=== PATIENT | male | born 1950 | race Caucasian/White ===

== ENCOUNTER → 2017-02-22 | Outpatient (CLI) | payer BC, MEDICARE, OTHER ==
[2017-02-22 10:39] LABS: HEMATOCRIT 42.5 % (37.9-51.0); HEMOGLOBIN 14.3 g/dL (13.5-17.0); HGB HCT DIFFERENCE 0.4; MEAN CORPUSCULAR HEMOGLOBIN 30.6 pg (27.0-33.4); MEAN CORPUSCULAR HGB CONC 33.5 g/dL (32.0-36.0); MEAN CORPUSCULAR VOLUME 91 fl (80-97); RED BLOOD COUNT 4.65 10^6/uL (4.35-5.55); RED CELL DISTRIBUTION WIDTH 13.2 % (11.5-14.0); WHITE BLOOD COUNT 11.3 10^3/uL (4.0-10.5)
[2017-02-22 11:01] LABS: ALANINE AMINOTRANSFERASE 43 U/L (21-72); ALBUMIN 4.8 g/dL (3.5-5.0); ALKALINE PHOSPHATASE 70 U/L (38-126); ANION GAP 12 (5-19); ASPARTATE AMINO TRANSFERASE 25 U/L (17-59); BILIRUBIN,DIRECT 0.4 mg/dL (0.0-0.4); BILIRUBIN,TOTAL 0.7 mg/dL (0.2-1.3); BLOOD UREA NITROGEN 17 mg/dL (7-20); CALCIUM 9.7 mg/dL (8.4-10.2); CARBON DIOXIDE 26 mmol/L (22-30); CHLORIDE 103 mmol/L (98-107); CREATININE RESULT 0.86 mg/dL (0.52-1.25); GLUCOSE 105 mg/dL (75-110); POTASSIUM 4.9 mmol/L (3.6-5.0); SODIUM 140.8 mmol/L (137-145); TOTAL PROTEIN 7.9 g/dL (6.3-8.2)
--- NOTE | 2017-02-22 13:21 | RADIOLOGY REPORT (SQ) ---
EXAM DESCRIPTION: CT ABD/PELVIS WITH IV ORAL COMPLETED DATE/TIME: 02/22/2017 1:02 pm REASON FOR STUDY: ABDOMINAL PAIN COMPARISON: None. TECHNIQUE: CT scan of the abdomen and pelvis performed using helical scanning technique with dynamic intravenous contrast injection. No oral contrast. Images reviewed with lung, soft tissue, and bone windows. Reconstructed coronal and sagittal MPR images reviewed. Delayed images for evaluation of the urinary system also acquired. All images stored on PACS. All CT scanners at this facility use dose modulation, iterative reconstruction, and/or weight based d osing when appropriate to reduce radiation dose to as low as reasonably achievable (ALARA). [facility]: Dose Right [facility]: CareDose [facility]: Dose Right [facility]: Teradose 4D [facility]: [employer] CONTRAST TYPE AND DOSE: contrast/concentration: Isovue 370.00 mg/ml; Total Contrast Delivered: 98.0 ml; Total Saline Delivered: 72.0 ml RENAL FUNCTION: Creatinine 0.86 RADIATION DOSE: Up-to-date CT equipment and radiation dose reduction techniques were employed. CTDIv ol: 13.6 - 15.7 mGy. DLP: 1596 mGy-cm.. LIMITATIONS: None. FINDINGS: Along the distal sigmoid colon, which loops into the right lower quadrant, there is a 7 cm long segment of wall thickening, luminal narrowing, and adjacent inflammation from acute diverticuli tis. No free air. No free fluid. No abscess. Report discussed with Dayday Nowak PA-C at [facility], 1300 hours 02/22/2017. There is oral contrast throughout the remainder of the gastrointestinal tract without evidence of bow el obstruction or appendicitis. LOWER CHEST: No significant findings. No nodules or infiltrates. LIVER: Normal size. No masses. No dilated ducts. SPLEEN: Normal size. No focal lesions. PANCREAS: No masses. No significant calcifications. No adjacent inflammation or peripancreatic fluid collections. Pancreatic duct not dilated. GALLBLADDER: No identified stones by CT criteria. No inflammatory changes to suggest cholecystitis. ADRENAL GLANDS: No significant masses or asymmetry. RIGHT KIDNEY AND URETER: No solid masses. No significant calcifications. No hydronephrosis or hyd roureter. LEFT KIDNEY AND URETER: No solid masses. No significant calcifications. No hydronephrosis or hydr oureter. AORTA AND VESSELS: No aneurysm. No dissection. Renal arteries, SMA, celiac without stenosis. RETROPERITONEUM: No retroperitoneal adenopathy, hemorrhage or masses. BOWEL AND PERITONEAL CAVITY: As above APPENDIX: Normal. PELVIS: No mass. No free fluid. Normal bladder. ABDOMINAL WALL: No masses. No hernias. BONES: No significant or acute findings. OTHER: No other significant finding. IMPRESSION: Distal sigmoid colon wall thickening, luminal narrowing and adjacent inflammation from d iverticulitis. No abscess. Report called to the patient's primary caregiver as above. TECHNICAL DOCUMENTATION: JOB ID: [id number] Quality ID # [id number]: Final reports with documentation of one or more dose reduction techniques (e.g., Au tomated exposure control, adjustment of the mA and/or kV according to patient size, use of iterative reconstruction technique) 2010 [employer]- All Rights Reserved
== END ==
LOC: RAD 10:11
PROVIDERS: ATTEND Physician Assistant
DX: R10.9 Unspecified abdominal pain (principal)
CPT/HCPCS: 36415; 74177; 80053; 85027

== ENCOUNTER 2019-07-15 08:06 | Emergency (ER) | payer MEDICARE, BC, OTHER ==
--- NOTE | 2019-07-15 08:55 | RADIOLOGY REPORT (SQ) ---
EXAM DESCRIPTION: CT HEAD WITHOUT COMPLETED DATE/TIME: 07/15/2019 8:41 am REASON FOR STUDY: ?LOC, head injury COMPARISON: None. TECHNIQUE: Axial images acquired through the brain without intravenous contrast. Images reviewed wi th bone, brain and subdural windows. Images stored on PACS. All CT scanners at this facility use dose modulation, iterative reconstruction, and/or weight based d osing when appropriate to reduce radiation dose to as low as reasonably achievable (ALARA). [facility]: Dose Right [facility]: [employer] [facility]: Dose Right [facility]: Teradose 4D [facility]: [employer] RADIATION DOSE: CT Rad equipment meets quality standard of care and radiation dose reduction techniq ues were employed. CTDIvol: 53.2 mGy. DLP: 1044 mGy-cm. mGy. LIMITATIONS: None. FINDINGS: VENTRICLES: Minimal dilatation, likely atrophy. CEREBRUM: No mass effect. No hemorrhage. No midline shift. Normal [place]/white matter differentiatio n. No evidence for acute territorial infarction. CEREBELLUM: No mass effect. No hemorrhage. No alteration of density. No evidence for acute infarct ion. EXTRAAXIAL SPACES: No fluid collections. ORBITS AND GLOBE: Symmetrical contour of the globes. CALVARIUM: No depressed skull fracture. PARANASAL SINUSES: No air-fluid level. SOFT TISSUES: No hematoma. IMPRESSION: No acute intracranial abnormality. TECHNICAL DOCUMENTATION: JOB ID: [id number]-[facility] [id number]: Final reports with documentation of one or more dose reduction techniques (e.g., Automate d exposure control, adjustment of the mA and/or kV according to patient size, use of iterative recons truction technique) 2010 [employer]- All Rights Reserved Reading location - IP/workstation name: [email or web address]
[2019-07-15 10:04] LABS: ABSOLUTE BASOPHILS # (AUTO) 0.1 10^3/uL (0.0-0.2); ABSOLUTE EOSINOPHILS # (AUTO) 0.2 10^3/uL (0.0-0.6); ABSOLUTE LYMPHOCYTES (AUTO) 1.5 10^3/uL (0.5-4.7); ABSOLUTE MONOCYTES (AUTO) 0.9 10^3/uL (0.1-1.4); ABSOLUTE NEUT (AUTO) 8.5 10^3/uL (1.7-8.2); BASOPHILS % (AUTO) 1.1 % (0-2); EOSINOPHILS % (AUTO) 1.6 % (0-6); HEMATOCRIT 37.1 % (37.9-51.0); HEMOGLOBIN 12.7 g/dL (13.5-17.0); LYMPHOCYTES % (AUTO) 13.6 % (13-45); MEAN CORPUSCULAR HEMOGLOBIN 31.2 pg (27.0-33.4); MEAN CORPUSCULAR HGB CONC 34.1 g/dL (32.0-36.0); MEAN CORPUSCULAR VOLUME 91 fl (80-97); MONOCYTES % (AUTO) 8.4 % (3-13); PLATELET COUNT 324 10^3/uL (150-450); RED BLOOD COUNT 4.07 10^6/uL (4.35-5.55); RED CELL DISTRIBUTION WIDTH 13.4 % (11.5-14.0); SEGMENTED NEUTROPHILS % (AUTO) 75.3 % (42-78); TOTAL CELLS COUNTED % (AUTO) 100 %; WHITE BLOOD COUNT 11.3 10^3/uL (4.0-10.5)
[2019-07-15 10:27] LABS: ALBUMIN 4.3 g/dL (3.5-5.0); ALKALINE PHOSPHATASE 63 U/L (38-126); ANION GAP 8 (5-19); ASPARTATE AMINO TRANSFERASE 27 U/L (17-59); BILIRUBIN,DIRECT 0.2 mg/dL (0.0-0.4); BILIRUBIN,TOTAL 0.7 mg/dL (0.2-1.3); BLOOD UREA NITROGEN 31 mg/dL (7-20); CALCIUM 9.6 mg/dL (8.4-10.2); CARBON DIOXIDE 27 mmol/L (22-30); CHLORIDE 103 mmol/L (98-107); CREATINE KINASE 147 U/L (55-170); GLUCOSE 108 mg/dL (75-110); POTASSIUM 5.4 mmol/L (3.6-5.0); TOTAL PROTEIN 7.1 g/dL (6.3-8.2)
[2019-07-15 10:38] LABS: CREATINE KINASE MB 1.14 ng/mL (<4.55)
[2019-07-15 10:41] LABS: TROPONIN I < 0.012 ng/mL
[2019-07-15] MEDS ORDERED: TETANUS/DIPHTHERIA TOX-ADULT 0.5 ML SYR (>=7YO) IM ONE (10:42)
--- NOTE | 2019-07-15 10:43 | ER Document Report ---
ED Head/Face/Scalp Injury <LISA,SRAVANICARLENESHAMA - Last Filed: 07/15/19 12:34> - General TRAVEL OUTSIDE OF THE [place] IN LAST 30 DAYS: No - HPI Patient complains to provider of: Laceration - r forehead Injury to: Forehead Location of problem: Head Occurred: Just prior to arrival Where: Home Timing: Still present <YRIS BERNARD - Last Filed: 07/15/19 12:43> - General Chief Complaint: Facial Injury Stated Complaint: FALL,EYE INJURY Primary Care Provider: LIZANDRO BOONE MD [Primary Care Provider] - Follow up as needed - HPI Notes: Patient is a-year-old male who was standing in the kitchen apparently was taking a step forward slipped and fell forward hitting the head his head on the ground and he did not have any loss of consciousness denies any chest pain shortness of breath dizziness lightheadedness abdominal pain vomiting diarrhea or other complaints. Loss of consciousness. This shot is not up-to-date. (YRIS BERNARD) - Related Data Allergies/Adverse Reactions: Penicillins Allergy (Verified 07/15/19 09:11) Past Medical History - Social History Smoking Status: Never Smoker Frequency of alcohol use: None Drug Abuse: None Family History: None Patient has suicidal ideation: No Patient has homicidal ideation: No - Past Medical History Cardiac Medical History: Reports: Hx Hypercholesterolemia, Hx Hypertension - Immunizations Immunizations up to date: No Hx Diphtheria, Pertussis, Tetanus Vaccination: No <YRIS BERNARD - Last Filed: 07/15/19 12:43> Review of Systems - Review of Systems Constitutional: denies: No symptoms reported, See HPI, Chills, Diaphoresis, Fever, Malaise, Weakness, Other, Weight gain, Weight loss, Recent illness EENT: denies: No symptoms reported, See HPI, Eye pain, Eye discharge, Blurred vision, Tearing, Double vision, Ear pain, Ear discharge, Nose pain, Nose conges tion, Nose discharge, Sinus pressure, Sinus discharge, Throat pain, Difficulty swallowing, Throat swelling, Mouth pain, Mouth swelling, Dental problem, Vertigo, Other Cardiovascular: denies: No symptoms reported, See HPI, Chest pain, Palpitations, Heart racing, Orthopnea, Dyspnea, Syncope, Dizziness, Lightheaded, Edema, Other, Paroxysmal Nocturnal Dysp Respiratory: denies: No symptoms reported, See HPI, Cough, Hurts to breathe, Hemoptysis, Short of breath, Sputum, Stridor, Wheezing, Other Gastrointestinal: denies: No symptoms reported, See HPI, Abdomen distended, Abdominal pain, Diarrhea, Nausea, Vomiting, Constipation, Blood streaked bowels, Poor appetite, Poor fluid intake, Blood in vomit, Black stools, Rectal bleeding, Last bowel movement, Fecal incontinence, Other Genitourinary: denies: No symptoms reported, See HPI, Burning, Dysuria, Discharge, Frequency, Flank pain, Hematuria, Incontinence, Pain, Urgency, Retention, Other Musculoskeletal: denies: No symptoms reported, See HPI, Back pain, Gout, Joint pain, Joint swelling, Muscle pain, Muscle stiffness, Neck pain, Deformity, Leg swelling, Ankle swelling, Other Neurological/Psychological: Headaches -: Yes All other systems reviewed and negative <YRIS BERNARD - Last Filed: 07/15/19 12:43> Physical Exam <YRIS BERNARD - Last Filed: 07/15/19 12:43> - Vital signs Vitals: Pulse BP 64 125/103 H 07/15/19 11:40 07/15/19 11:40 Notes: PHYSICAL EXAMINATION: GENERAL: Well-appearing, well-nourished and in no acute distress. HEAD:ecchymosis to r eyebrow. Approximately 2 cm laceration above the right e yebrow. On the forehead soft tissue swelling around the eye however there is no bony step-offs in the zygomatic arch or the orbital rim EYES: Pupils equal round and reactive to light, extraocular movements intact, sclera anicteric, conjunctiva are normal. ENT: nares patent, oropharynx clear without exudates. Moist mucous membranes. NECK: Normal range of motion, supple without lymphadenopathy LUNGS: Breath sounds clear to auscultation bilaterally and equal. No wheezes rales or rhonchi. HEART: Regular rate and rhythm without murmurs ABDOMEN: Soft, nontender, normoactive bowel sounds. No guarding, no rebound. No masses appreciated. EXTREMITIES: Normal range of motion, no pitting or edema. No cyanosis. Bilateral fingers index and middle on the hands are painful to palpation but full range of motion. NEUROLOGICAL: No focal neurological deficits. Moves all extremities sp ontaneously and on command. PSYCH: Normal mood, normal affect. SKIN: Warm, Dry, normal turgor, no rashes or lesions noted. (YRIS BERNARD) Course - Laboratory Result Diagrams: 07/15/19 09:45 07/15/19 09:45 <VALERIY GONZALEZ - Last Filed: 07/15/19 12:34> - Laboratory Result Diagrams: 07/15/19 09:45 07/15/19 09:45 - Diagnostic Test Radiology reviewed: Image reviewed, Reports reviewed - EKG Interpretation by Me EKG shows normal: Sinus rhythm Rate: Bradycardia When compared to previous EKG there are: Previous EKG unavailable <YRIS BERNARD - Last Filed: 07/15/19 12:43> - Vital Signs Vital signs: Temp Pulse Resp BP Pulse Ox 64 125/103 H 07/15/19 11:41 07/15/19 11:41 - Laboratory Laboratory results interpreted by me: 07/15/19 07/15/19 09:45 09:45 WBC 11.3 H RBC 4.07 L Hgb 12.7 L Hct 37.1 L Absolute Neuts (auto) 8.5 H Potassium 5.4 H BUN 31 H - Transfer of Care Notes: 07/15/19 10:47 Sinus bradycardia rate of [address] elevation flipped T ectopy is noted no previous available to compare. (YRIS BERNARD) Procedures - Laceration/Wound Repair Right Face Wound length (cm): 2.5 Wound's Depth, Shape: Irregular Laceration pre-procedure: Shur-Clens applied Anesthetic type: 1% Lidocaine w/epi Volume Anesthetic (mLs): 1 Wound explored: Clean Wound Repaired With: Sutures Suture Size/Type: 6:0, Nylon Number of Sutures: 6 Layer Closure?: No Post-procedure NV exam normal: Yes Complications: No Adult Head Front/Back picture: 1 - irreg 2.5 cm lac <VALERIY GONZALEZ - Last Filed: 07/15/19 12:34> - Laceration/Wound Repair Right Face Notes: 07/15/19 12:36 After wound was anesthetized with 1% Xylocaine with epinephrine and cleansed, wound was repaired with 6-0 nylon sutures performed by aSlinas PLOW SHAKER. (VALERIY GONZALEZ) Discharge <VALERIY GONZALEZ - Last Filed: 07/15/19 12:34> <YRIS BERNARD Sera - Last Filed: 07/15/19 12:43> - Discharge Clinical Impression: Near syncope Facial laceration Qualifiers: Encounter type: initial encounter Qualified Code(s): S01.81XA - Laceration without foreign body of other part of head, initial encounter Contusion, fingers Qualifiers: Encounter type: initial encounter Finger: middle finger Damage to nail status: without damage Laterality: right Qualified Code(s): S60.031A - Contusion of right middle finger without damage to nail, initial encounter Condition: Good Disposition: HOME, SELF-CARE Instructions: Soap Cleansing ([facility]), Laceration Care ([facility]), Tetanus Immunization Given ([facility]), Antibiotic Ointment Protection ([facility]) Additional Instructions: Wash wound with soap and water twice a day and put Neosporin on the wound. Sutures need to come out in 7 days return if you have vomiting severe headache memory loss trouble walking you pass out or condition worsens if fingers continue to hurt despite resting them and applying ice for 20 minutes 3 times a day follow-up with orthopedics for re-x-ray. Referrals: LIZANDRO BOONE MD [Primary Care Provider] - Follow up as needed
[2019-07-15] MEDS ORDERED: LIDOCAINE 1%/EPINEPHRINE INJ 20 ML VIAL INJ ONE (11:33)
--- NOTE | 2019-07-15 12:21 | RADIOLOGY REPORT (SQ) ---
EXAM DESCRIPTION: HAND BILATERAL 3 VIEWS COMPLETED DATE/TIME: 07/15/2019 11:51 am REASON FOR STUDY: fracture pain COMPARISON: None. EXAM PARAMETERS: NUMBER OF VIEWS: Three views. TECHNIQUE: AP, lateral and oblique radiographic images acquired of the right and left hand. LIMITATIONS: None. FINDINGS: MINERALIZATION: Normal. BONES: No definite acute fracture or dislocation. No suspicious osseous lesions. There are degenera tive changes with osteophytosis and joint space loss greatest at the 3rd and 4th digits bilaterally w ith bulky osteophytes. JOINTS: No dislocation. No chondrocalcinosis. SOFT TISSUES: No soft tissue swelling. No foreign body. OTHER: No other significant finding. IMPRESSION: 1. No evidence of acute bony abnormality of either hand. 2. Dysmorphic appearance of the mid phalanx 3rd digit on the left hand, likely related to remote inj ury. 3. 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 TECHNICAL DOCUMENTATION: JOB ID: [id number] [employer]- All Rights Reserved Reading location - IP/workstation name: [email or web address]
[2019-07-15 13:07] VITALS: BP 129/72
--- NOTE | 2019-07-15 13:49 | EKG REPORT ---
SEVERITY:- NORMAL ECG - SINUS RHYTHM : Confirmed by: Rogelio Matson MD 15-Jul-2019 13:49:32
== END 2019-07-15 13:07 | disposition home or self-care (01) ==
LOC: ER 08:06
PROC: 0HQ1XZZ Repair Face Skin, External Approach (ICD-10-PCS; principal; 2019-07-15)
DX: S01.81XA Laceration without foreign body of other part of head, initial encounter (principal); S60.031A Contusion of right middle finger without damage to nail, initial encounter; R42 Dizziness and giddiness; W01.0XXA Fall on same level from slipping, tripping and stumbling without subsequent striking against object, initial encounter
CPT/HCPCS: 93005; 99284; 90471; 36415; 82553; 82550; 85025; 80053; 84484; 73130; 70450; 90714; 93010; 12011; J3490